=== PATIENT | female | born 2000 | race Caucasian/White ===

== ENCOUNTER 2020-01-25 20:06 | Emergency (ER) | payer MEDICAID ==
[~2020-01-25] VITALS: Ht 165.1 cm; Wt 61.0 kg
[2020-01-25 22:29] LABS: CLARITY URINE CLEAR (CLEAR); COLOR URINE YELLOW (YELLOW); KETONES URINE NEGATIVE (NEGATIVE); LEUKOCYTE ESTERASE URINE 1+ (NEGATIVE); NITRITE URINE NEGATIVE (NEGATIVE); OCCULT BLOOD URINE NEGATIVE (NEGATIVE); PH URINE 7.5 (4.5-8.0); PROTEIN URINE NEGATIVE (NEGATIVE); SPECIFIC GRAVITY URINE 1.009 (1.005-1.030)
[2020-01-25] MEDS ORDERED: KETOROLAC 30MG/ML VIAL IM ONE (22:30)
[2020-01-25 22:35] VITALS: BP 125/78
== END 2020-01-25 23:11 | disposition home or self-care (01) ==
LOC: ER 20:06
DX: M54.5 Low back pain (principal); N39.0 Urinary tract infection, site not specified; Z88.0 Allergy status to penicillin
CPT/HCPCS: 81003; 81025; 96372; 99283; J1885